=== PATIENT | male | born 1990 | race Caucasian/White ===

== ENCOUNTER 2018-05-12 23:50 | Emergency (ER) | payer MEDICAID ==
[~2018-05-12] VITALS: Ht 172.7 cm; Wt 93.0 kg
[2018-05-13 00:10] VITALS: BP_SYST 142
--- NOTE | 2018-05-13 00:15 | NUR ---
Patient to ER bed 6 to gown for evaluation. Side rails up. Report given from MINH Rutledge.
--- NOTE | 2018-05-13 00:20 | NUR ---
ER Dr.Au Ventura at bedside examining patient.
--- NOTE | 2018-05-13 00:25 | NUR ---
Pt came in complaining of L foot pain for the past few months.Pt says it happened due to his skateboard hitting his foot. Pt says that pain gets worse when walking and notices that he feels a popping sensation. Pt says he walked from his friends house to the hospital. No n/v/d or fever. No other complaints/injuries noted. Will cont. to monitor.
[2018-05-13] MEDS ORDERED: IBUPROFEN 800 MG TABLET PO ONE (00:30)
--- NOTE | 2018-05-13 00:31 | NUR ---
Pt medicated with ibuprofen PO per MD order. Tolerated well. Will cont. to monitor.
[2018-05-13 01:50] VITALS: BP_SYST 130
--- NOTE | 2018-05-13 01:50 | NUR ---
Patient given written and verbal discharge instructions and verbalizes understanding. ER MD discussed with patient the results and treatment provided. Patient in stable condition. ID arm band removed. Rx of Ibuprofen and Tylenol given. Patient educated on pain management and to follow up with PMD. Pain Scale 0/10. Opportunity for questions provided and answered. Medication side effect fact sheet provided.
== END 2018-05-13 01:50 | disposition home or self-care (01) ==
LOC: SED 23:50
DX: M79.672 Pain in left foot (principal); Z87.891 Personal history of nicotine dependence
CPT/HCPCS: 99283

== ENCOUNTER 2018-10-14 14:32 | Emergency (ER) | payer MEDICAID ==
[~2018-10-14] VITALS: Ht 172.7 cm; Wt 93.0 kg
[2018-10-14 14:39] VITALS: BP_SYST 146
--- NOTE | 2018-10-14 14:42 | NUR ---
Patient to ER bed 08 to gown for evaluation. Side rails up.
--- NOTE | 2018-10-14 14:42 | NUR ---
Pt brought by self,A&Ox4, pt presents to ER with rash on upper back (ring shape), skin pink and warm, afebrile, will cont to monitor.
--- NOTE | 2018-10-14 14:43 | NUR ---
Dr Wong at bedside examining patient
[2018-10-14 14:55] VITALS: BP_SYST 142
--- NOTE | 2018-10-14 15:00 | NUR ---
Patient given written and verbal discharge instructions and verbalizes understanding. ER MD discussed with patient the results and treatment provided. Patient in stable condition. ID arm band removed. Rx of Lotrisone given. Patient educated on pain management and to follow up with PMD. Pain Scale 0/10. Opportunity for questions provided and answered. Medication side effect fact sheet provided.
== END 2018-10-14 15:00 | disposition home or self-care (01) ==
LOC: SED 14:32
DX: B35.4 Tinea corporis (principal); R03.0 Elevated blood-pressure reading, without diagnosis of hypertension
CPT/HCPCS: 99283

== ENCOUNTER 2019-02-08 03:17 | Emergency (ER) | payer MEDICAID ==
[~2019-02-08] VITALS: Ht 170.2 cm; Wt 93.0 kg
[2019-02-08 03:20] VITALS: BP_SYST 149
--- NOTE | 2019-02-08 03:25 | NUR ---
Patient to ER bed 7 to gown for evaluation. Side rails up. Report given to Abraham WILKINSON.
--- NOTE | 2019-02-08 03:33 | NUR ---
ER at bedside examining patient.
[2019-02-08] MEDS ORDERED: AMOXICILLIN 500 MG CAPSULE PO ONE (03:45)
[2019-02-08] MEDS ORDERED: IBUPROFEN 800 MG TABLET PO ONE (03:45)
--- NOTE | 2019-02-08 03:49 | NUR ---
Patient given written and verbal discharge instructions and verbalizes understanding. ER MD discussed with patient the results and treatment provided. Patient in stable condition. ID arm band removed. Rx of MOTRIN AND AMOXICILLIN given. Patient educated on pain management and to follow up with PMD. Pain Scale 7/10. Opportunity for questions provided and answered. Medication side effect fact sheet provided.
[2019-02-08 03:51] VITALS: BP_SYST 141
== END 2019-02-08 03:51 | disposition home or self-care (01) ==
LOC: SED 03:17
DX: K04.7 Periapical abscess without sinus (principal); R03.0 Elevated blood-pressure reading, without diagnosis of hypertension
CPT/HCPCS: 99283

== ENCOUNTER 2019-02-28 02:02 | Emergency (ER) | payer MEDICAID ==
[~2019-02-28] VITALS: Ht 172.7 cm; Wt 93.0 kg
[2019-02-28 02:08] VITALS: BP_SYST 138
--- NOTE | 2019-02-28 02:08 | NUR ---
Dr Pulido doing MSE at triage room
--- NOTE | 2019-02-28 02:14 | NUR ---
Patient to ER bed 03 to gown for evaluation. Side rails up.
--- NOTE | 2019-02-28 02:15 | NUR ---
Dr Pulido examining patient at this time.
== END 2019-02-28 02:15 | disposition left against medical advice (07) ==
LOC: SED 02:02
DX: Z20.2 Contact with and (suspected) exposure to infections with a predominantly sexual mode of transmission (principal); Z53.20 Procedure and treatment not carried out because of patient's decision for unspecified reasons
CPT/HCPCS: 99281

== ENCOUNTER 2019-06-01 00:04 | Emergency (ER) | payer MEDICAID ==
[~2019-06-01] VITALS: Ht 170.2 cm; Wt 93.0 kg
[2019-06-01 00:20] VITALS: BP_SYST 132
--- NOTE | 2019-06-01 00:22 | NUR ---
Patient triaged and placed in waiting room. VSS and patient appears in no acute distress at this time.Awaiting available bed, and MD notified of need for MSE.
--- NOTE | 2019-06-01 04:00 | NUR ---
Patient left without being seen. No further treatment provided. ER MD aware
--- NOTE | 2019-06-01 04:00 | NUR ---
Called patient x 3, no answer
== END 2019-06-01 04:00 | disposition left against medical advice (07) ==
LOC: SED 00:04
DX: R06.7 Sneezing (principal); Z53.21 Procedure and treatment not carried out due to patient leaving prior to being seen by health care provider